=== PATIENT | female | born 1935 | race Caucasian/White ===

== ENCOUNTER 2019-12-16 20:36 | Emergency (ER) | payer OTHER, MEDICAID ==
[~2019-12-16] VITALS: Ht 154.9 cm; Wt 73.5 kg
[~2019-12-16 20:36] MED LIST: AMLO5TAB8 PO; LOSA100T51 PO; OMEP20TC10 PO; ONDA4TAB PO; XALOS OP
--- NOTE | 2019-12-16 20:41 | NUR ---
CALLED PT NAME. PT WENT TO RESTROOM IN LOBBY.
[2019-12-16 20:50] VITALS: BP 165/92
[2019-12-16 21:13] VITALS: BP 165/92
--- NOTE | 2019-12-16 21:15 | NUR ---
PT AMBULATED TO [facility]
--- NOTE | 2019-12-16 21:18 | NUR ---
84F PRESENT TO ED FOR C/O 5/10 NOSE PAIN S/P FALL AT HOME X 1 HOUR . PT STATES SHE FELL FORWARD AND HIT HER NOSE. DENIES LOC. BLEEDING CONTROLLED. BRIDGE OF NOSE NOTED WITH ECCHYMOSIS AND SWELLING. PT DENIES DIZZYNESS. PT BREATHING UNLABORED. MEDHX: HTN, MILD STROKE X 10 YEARS ALLX: DENIES NEGATIVE FOR COVID SCREENING
--- NOTE | 2019-12-16 21:58 | NUR ---
DR LYLE EVALUATING PATIENT.
== END 2019-12-16 22:10 | disposition home or self-care (01) ==
LOC: MED 20:36
DX: S02.2XXA Fracture of nasal bones, initial encounter for closed fracture (principal); R04.0 Epistaxis; I10 Essential (primary) hypertension; Z86.73 Personal history of transient ischemic attack (TIA), and cerebral infarction without residual deficits; Z85.41 Personal history of malignant neoplasm of cervix uteri; Z79.899 Other long term (current) drug therapy; W18.09XA Striking against other object with subsequent fall, initial encounter; Y93.01 Activity, walking, marching and hiking; Y92.096 Garden or yard of other non-institutional residence as the place of occurrence of the external cause; Y99.8 Other external cause status
CPT/HCPCS: 99282